=== PATIENT | male | born 1985 | race Caucasian/White ===

== ENCOUNTER → 2017-01-30 | Outpatient (CLI) | payer BC ==
--- NOTE | 2017-01-30 10:10 | CR ---
EXAMINATION: Two-view chest (PA and Lateral views). HISTORY: Hemoptysis. FINDINGS: The trachea is midline. The cardiomediastinal silhouette is within normal limits. No pulmonary infil trates, effusions or pneumothorax. Osseous structures appear unremarkable. IMPRESSION: No acute cardiopulmonary process.
== END ==
LOC: MW.CHFP 09:04
PROVIDERS: ATTEND Student in an Organized Health Care Education/Training Program
DX: R04.2 Hemoptysis (principal); J02.9 Acute pharyngitis, unspecified; R19.5 Other fecal abnormalities; K92.1 Melena; R53.83 Other fatigue
CPT/HCPCS: 36415; 71020; 71020-26; 83630; 85027; 87046; 87081; 87324; 87880; 87899

== ENCOUNTER 2017-02-24 10:25 | Day surgery (SDC) | payer BC ==
[~2017-02-24 10:25] MED LIST: Lactated Ringers 1,000 ML IV SCH; Lidocaine 2% 5 ML SDV ONE; Midazolam 1 MG/ML 2 ML SDV ONE; Propofol 200 MG/20 ML SDV ONE; fentaNYL 100 MCG/2 ML SDV ONE
--- NOTE | 2017-02-24 10:51 | PCM.PREANE ---
Preanesthetic Assessment - Anesthesia/Transfusion/Family Hx Anesthesia History: No Prior Anesthesia Family History of Anesthesia Reaction: No Transfusion History: No Prior Transfusion(s) Intubation History: Unknown - Review of Systems General: No Symptoms Pulmonary: No Symptoms Cardiovascular: No Symptoms Gastrointestinal: Abdominal pain Neurological: No Symptoms Other: Reports: None - Physical Assessment O2 Sat by Pulse Oximetry: 96 Respiratory Rate: 16 Vital Signs: Last Vital Signs Temp 36.7 C 02/24/17 10:41 Pulse 56 L 02/24/17 10:41 Resp 16 02/24/17 10:41 BP 128/81 02/24/17 10:41 Pulse Ox 96 02/24/17 10:41 Height: 1.91 m Weight: 111.13 kg ASA Class: 2 Mental Status: Alert & Oriented x3 Airway Class: Mallampati = 2 Dentition: Reports: Normal Dentition, [place](s) (x1 up front) Thyro-Mental Finger Breadths: 3 Mouth Opening Finger Breadths: 2 ROM/Head Extension: Full Lungs: Clear to auscultation, Normal respiratory effort Cardiovascular: Regular Rate, Regular Rhythm - Allergies Allergies/Adverse Reactions: Allergies Allergy/AdvReac Type Severity Reaction Status Date / Time No Known Allergies Allergy Verified 02/20/17 10:25 - Blood Blood Available: No - Anesthesia Plan Pre-Op Medication Ordered: None - Acknowledgements Anesthesia Type Planned: MAC Pt an Appropriate Candidate for the Planned Anesthesia: Yes Alternatives and Risks of Anesthesia Discussed w Pt/Guardian: Yes Pt/Guardian Understands and Agrees with Anesthesia Plan: Yes PreAnesthesia Questionnaire - Past Health History Medical/Surgical History: Denies Medical/Surgical History Gastrointestinal History: Reports: GERD Musculoskeletal History: Reports: Fracture - Past Surgical History Head Surgeries/Procedures: Reports: None - SUBSTANCE USE Smoking Status *Q: Former Smoker (quit a year ago) Tobacco Use Within Last Twelve Months: No Recreational Drug Use History: No - HOME MEDS Home Medications: Home Meds . [No Known Home Meds] 02/20/17 [History] - CURRENT (IN HOUSE) MEDS Current Meds: Current Medications Lactated Ringer's (Ringers, Lactated) 1,000 mls @ 125 mls/hr IV ASDIRECTED JAKE Last Admin: 02/24/17 10:43 Dose: 125 mls/hr Discontinued Medications Fentanyl (Sublimaze) Confirm Administered Dose 100 mcg .ROUTE .STK-MED ONE Stop: 02/24/17 10:02 Lidocaine (Xylocaine-Mpf 2%) Confirm Administered Dose 5 ml .ROUTE .STK-MED ONE Stop: 02/24/17 10:02 Midazolam HCl (Versed 1 Mg/Ml) Confirm Administered Dose 2 mg .ROUTE .STK-MED ONE Stop: 02/24/17 10:02 Propofol (Diprivan 20 Ml) Confirm Administered Dose 400 mg .ROUTE .STK-MED ONE Stop: 02/24/17 10:02
--- NOTE | 2017-02-24 11:14 | PCM.OPNOTE ---
- General Post-Op/Procedure Note Date of Surgery/Procedure: 02/24/17 Operative Procedure(s): egd w bx Findings: see dict [id number] Pre Op Diagnosis: gerd Post-Op Diagnosis: esophagitis Anesthesia Technique: Moderate sedation Primary Surgeon: Bryce Saeed Pathology: egd bx Complications: None Condition: Good
--- NOTE | 2017-02-24 11:30 | PCM.POSTAN ---
POST ANESTHESIA ASSESSMENT - MENTAL STATUS Mental Status: alert - RESPIRATORY Respiratory Status: respiratory rate WNL, airway patent, O2 saturation stable - CARDIOVASCULAR CV Status: pulse rate WNL, blood pressure stable - GASTROINTESTINAL GI Status: no symptoms - POST OP HYDRATION Hydration Status: adequate & stable - OBSERVATIONS Free Text/Narrative:: no anesthesia problems
[2017-02-24 11:34] VITALS: BP 119/63
--- NOTE | 2017-02-24 18:50 | OR ---
SURGEON: Bryce Saeed MD DATE OF PROCEDURE: 02/24/2017 PREOPERATIVE DIAGNOSIS: Acid reflux. POSTOPERATIVE DIAGNOSIS: Esophagitis. PROCEDURE: EGD with biopsy. PROCEDURE IN DETAIL: EGD: The patient was taken to the endoscopy room, and with the [employer] SCRE[employer] MACHINE, Diprivan was administered. A well-lubricated EGD scope was gently inserted through the oropharynx, down the esophagus, passing through the gastroesophageal junction, into the stomach. The mucosa was examined upon the passage. Any etiology will be noted. Once in the stomach, we continued to advance to the distal antrum, passed through the pylorus into the second portion of the duodenum. Again, the mucosa was examined for any abnormality and etiology. The scope was then retrieved back to the stomach and then retroflexed to look at the fundus of the stomach. If a biopsy was indicated, we will biopsy the antrum, body, and gastroesophageal junction. The air will be sucked out while the scope is retrieved to reduce the patient's discomfort. The patient tolerated the procedure well. There were no intraoperative complications. Dr. Saeed was present through the whole procedure. Prior to surgery, a time-out had been called, the patient identified, procedure identified and antibiotic administered. FINDINGS: 1. The patient is easily sedated with [employer] SCRE[employer] MACHINE and Diprivan. The patient is soundly snoring. 2. Oropharynx and proximal esophagus is free of disease, inflammation, stricture, ulceration, or blood. Distal esophagus at GE junction at 40 shows a flame-like structure and with area look like healed esophageal ulcer. No blood. No ely ulcer observed and stomach rugae is normal in appearance. No blood, no bile, and no food particle. Antrum is slightly inflamed and duodenum is grossly normal. Retrieved back to the stomach. Retroflexed look at the fundus of the stomach, there is no etiology. No hiatal hernia. Biopsy done at antrum, body, GE junction at 40 and sucked out the air while scope pulling out. GUALBERTO / MOLINA /[id number]
== END 2017-02-24 11:40 | disposition home or self-care (01) ==
LOC: MW.SDS 10:25
PROVIDERS: ATTEND Surgery
DX: K21.0 Gastro-esophageal reflux disease with esophagitis (principal); K29.70 Gastritis, unspecified, without bleeding; K92.1 Melena; Z87.891 Personal history of nicotine dependence; Z79.899 Other long term (current) drug therapy
CPT/HCPCS: 43239; J2250; J3010; J7120; 00740; 88305; 88312; J2704

== ENCOUNTER → 2017-03-03 | Outpatient (CLI) | payer BC ==
--- NOTE | 2017-03-03 16:19 | CR ---
EXAMINATION: Two-view chest (PA and Lateral views). HISTORY: pleurodynia FINDINGS: The trachea is midline. The cardiomediastinal silhouette is within normal limits. No pulmonary infil trates, effusions or pneumothorax. Osseous structures appear unremarkable. No displaced rib fracture identified. IMPRESSION: No acute cardiopulmonary process.
== END ==
LOC: MW.CHFP 15:28
PROVIDERS: ATTEND Physician Assistant
DX: R07.81 Pleurodynia (principal); V86.59XA Driver of other special all-terrain or other off-road motor vehicle injured in nontraffic accident, initial encounter
CPT/HCPCS: 71101-26-LT; 71101-LT

== ENCOUNTER 2023-11-09 18:25 | Emergency (ER) | payer BC ==
[2023-11-09] MEDS ORDERED: Ondansetron 4 MG/2 ML SDV IVPUSH ONE (19:10)
[2023-11-09] MEDS ORDERED: Sodium Chloride 0.9% 2.5 ML Syringe FLUSH PRN (19:10)
[2023-11-09] MEDS ORDERED: Dicyclomine 10 MG Cap PO ONE (19:10)
[2023-11-09] MEDS ORDERED: Sodium Chloride 0.9% 10 ML Syringe FLUSH PRN (19:10)
[2023-11-09] MEDS ORDERED: Sodium Chloride 0.9% 1,000 ML IV ONE (19:10)
[2023-11-09 19:48] LABS: CORONAVIRUS COVID-19 NAA NEGATIVE (NEGATIVE); INFLUENZA A NAA NEGATIVE (NEGATIVE); INFLUENZA B NAA NEGATIVE (NEGATIVE); RESPIRATORY SYNCYTIAL VIR NAA NEGATIVE (NEGATIVE)
[2023-11-09 20:27] LABS: BASOPHILS ABSOLUTE AUTO 0.04 K/uL (0.00-0.20); BASOPHILS PERCENT AUTO 0.4 % (0.0-1.0); EOSINOPHILS ABSOLUTE AUTO 0.11 K/uL (0.00-0.45); EOSINOPHILS PERCENT AUTO 1.2 % (0.0-6.0); HEMATOCRIT 46.5 % (42.0-52.0); HEMOGLOBIN 16.2 g/dL (14.0-18.0); IMMATURE GRAN ABSOLUTE AUTO 0.02 K/uL (0.00-0.05); IMMATURE GRAN PERCENT AUTO 0.2 % (0.0-0.4); LYMPHOCYTES ABSOLUTE AUTO 0.79 K/uL (1.00-4.80); LYMPHOCYTES PERCENT AUTO 8.4 % (24.0-44.0); MEAN CORPUSCULAR HEMOGLOBIN 28.7 pg (28.0-32.0); MEAN CORPUSCULAR HGB CONC 34.8 g/dL (32.0-36.0); MEAN CORPUSCULAR VOLUME 82.3 fL (83.0-99.0); MEAN PLATELET VOLUME 10.3 fL (9.4-12.4); MONOCYTES ABSOLUTE AUTO 0.41 K/uL (0.00-0.80); MONOCYTES PERCENT AUTO 4.4 % (0.0-8.0); NEUTROPHILS PERCENT AUTO 85.4 % (41.0-71.0); PLATELET COUNT,PLT 251 K/uL (150-400); RED BLOOD CELL COUNT 5.65 M/uL (4.52-5.90); WHITE BLOOD CELL COUNT,WBC 9.37 K/uL (3.9-11.3)
[2023-11-09 20:50] LABS: A/G RATIO 1.1 (0.9-1.6); ALANINE AMINOTRANSFERASE,ALT 119 IU/L (14-63); ALBUMIN 4.3 g/dL (3.4-5.0); ALKALINE PHOSPHATASE 78 U/L (46-116); ASPARTATE AMNIOTRANSFERASE,AST 40 IU/L (15-37); BLOOD UREA NITROGEN,BUN 16 mg/dL (7.0-18.0); CALCIUM 9.2 mg/dL (8.5-10.1); CARBON DIOXIDE,CO2 29.6 mmol/L (21.0-32.0); CHLORIDE,CL 101 mmol/L (98-107); CREATININE 1.1 mg/dL (0.8-1.3); EST CRCL DRUG DOSING (CG) 109.89 mL/min; GLUCOSE RANDOM 102 mg/dL (74-106); LIPASE 24 U/L (16-77); POTASSIUM,K 3.9 mmol/L (3.5-5.1); PROTEIN TOTAL,TP 8.2 g/dL (6.4-8.2); SODIUM,NA 141 mmol/L (136-148)
[2023-11-09 20:51] LABS: ESTIMATED GFR 89 mL/min (>60)
[2023-11-09 21:16] VITALS: BP 146/84; PULSE 92
== END 2023-11-09 21:17 | disposition home or self-care (01) ==
LOC: MW.ED 18:25
DX: R11.2 Nausea with vomiting, unspecified (principal); R10.84 Generalized abdominal pain
CPT/HCPCS: 0241U; 36415; 80053; 83690; 84484; 85025; 93005; 96361; 96374; 99284; A9270; J2405; J3490; J7030; 93010